=== PATIENT | female | born 1980 | race Caucasian/White ===

== ENCOUNTER 2017-05-01 17:47 | Emergency (ER) | payer SELFPAY | END 2017-05-01 19:51 | disposition home or self-care (01) | LOC: D.ER 17:47 | DX: G43.909 Migraine, unspecified, not intractable, without status migrainosus (principal); R11.10 Vomiting, unspecified; F17.200 Nicotine dependence, unspecified, uncomplicated ==

== ENCOUNTER 2017-05-03 13:33 | Emergency (ER) | payer SELFPAY | END 2017-05-03 14:47 | disposition home or self-care (01) | LOC: D.ER 13:33 | DX: G43.909 Migraine, unspecified, not intractable, without status migrainosus (principal); F17.200 Nicotine dependence, unspecified, uncomplicated ==

== ENCOUNTER 2018-01-24 03:48 | Emergency (ER) | payer SELFPAY ==
[~2018-01-24] VITALS: Ht 157.5 cm; Wt 75.0 kg
[2018-01-24 03:53] VITALS: Ht 157.5 cm; Wt 75.0 kg
[2018-01-24] MEDS ORDERED: MAXALT10 MG PO (03:54)
[2018-01-24] MEDS ORDERED: COMPAZINE25 MG RC (03:54)
[2018-01-24 05:10] VITALS: BP 94/57
== END 2018-01-24 05:11 | disposition home or self-care (01) ==
LOC: D.ER 03:48
DX: G43.909 Migraine, unspecified, not intractable, without status migrainosus (principal); R11.10 Vomiting, unspecified; F17.200 Nicotine dependence, unspecified, uncomplicated

== ENCOUNTER 2019-10-03 19:58 | Emergency (ER) | payer MEDICARE ==
[~2019-10-03] VITALS: Ht 157.5 cm; Wt 75.0 kg
[~2019-10-03 19:58] MED LIST: COMPAZINE25 MG RC; MAXALT10 MG PO
[2019-10-03 20:06] VITALS: BP 127/77; Ht 157.5 cm; Wt 75.0 kg
[2019-10-03] MEDS ORDERED: PAMELOR75 MG PO (20:09)
[2019-10-03] MEDS ORDERED: MINIPRESS 5 MG C5 MG PO (20:10)
[2019-10-03] MEDS ORDERED: ZYRTEC10 MG PO (20:41)
[2019-10-03] MEDS ORDERED: FLUTICASONE PRO16 GM NASAL (20:41)
--- NOTE | 2019-10-03 21:02 | NUR ---
DR VAZQUEZ NOTIFIED AND REVIEWED PT'S BEHAVIOR AND ASSESSMENT RESULTS. PT IS ALOW RISK PER DR VAZQUEZ. DR VAZQUEZ STATED TO GIVE RESOURCES TO PT AT TIME OF DISCHARGE. NO FURTHR ORDERS AT THIS TIME. RESOURCES REVIEWED WITH PT AND SHE VERBALIZED UNDERSTANDING.
== END 2019-10-03 21:06 | disposition home or self-care (01) ==
LOC: D.ER 19:58
DX: J30.9 Allergic rhinitis, unspecified (principal); Z72.0 Tobacco use